=== PATIENT | male | born 1960 | race Caucasian/White ===

== ENCOUNTER 2017-08-08 21:30 | Emergency (ER) | payer BC ==
[2017-08-08 21:35] VITALS: TEMP 99.1
[2017-08-08] MEDS ORDERED: NS 1,000 ML IV ONE (22:11)
[2017-08-08] MEDS ORDERED: IBUPROFEN 600 MG TAB PO ONE (22:12)
[2017-08-08 22:37] LABS: PLATELET COUNT 214 10^3/uL (150-400)
[2017-08-08 23:30] VITALS: BP 122/66; PULSE 110; O2SAT 94
[2017-08-08 23:32] VITALS: RESP 16
--- NOTE | 2017-08-08 23:37 | EDPHY ---
H & P Stated Complaint: chills after dental work today with nausea - Personal History Current Tetanus/Diphtheria Vaccine: Unsure Current Tetanus Diphtheria and Acellular Pertussis (TDAP): Unsure Tetanus Vaccine Date: >10years - Medical/Surgical History Hx Asthma: No Hx Chronic Respiratory Disease: No Hx Diabetes: Yes Hx Cardiac Disease: Yes Hx Renal Disease: No Hx Cirrhosis: No Hx Alcoholism: No Hx HIV/AIDS: No Hx Splenectomy or Spleen Trauma: No Other PMH: hypertension, DM type 2, and hyperlipemia. - Social History Smoking Status: Former smoker Time Seen by Provider: 08/08/17 22:05 HPI/ROS: Chief complaint: Chills History of present illness: This is a 56-year-old male who presents to the emergency department for evaluation of chills. Patient states he had periodontal work done this afternoon. Shortly thereafter he developed chills. He has had associated body aches. Does state his mouth hurts from the periodontal work. He denies other associated signs or symptoms including no reported fever, no respiratory symptoms, no urinary symptoms. He has never had similar. Review of systems: A 10 point review of systems was obtained and other than described above was negative (Amrik Phelps) - Physical Exam Exam: General Appearance: Alert, no distress. Eyes: Pupils equal and round no pallor or injection. ENT, Mouth: Mucous membranes moist. Respiratory: There are no retractions, lungs are clear to auscultation. Cardiovascular: Regular rate and rhythm. Gastrointestinal: Abdomen is soft and non tender, no masses, bowel sounds normal. Neurological: Alert and oriented x4. Strength and sensation intact and symmetrical. No meningismus. Skin: Warm and dry, no rashes. Musculoskeletal: Neck is supple non tender. Extremities are symmetrical, full range of motion. Psychiatric: Patient is oriented X 3, there is no agitation. (Amrik Phelps) Constitutional: Initial Vital Signs Temperature (C) 37.3 C 08/08/17 21:32 Heart Rate 111 H 08/08/17 21:32 Respiratory Rate 18 08/08/17 21:32 Blood Pressure 138/87 H 08/08/17 21:32 O2 Sat (%) 92 08/08/17 21:32 O2 Delivery Mode Room Air Allergies/Adverse Reactions: No Known Allergies Allergy (Verified 08/08/17 21:35) Home Medications: Medication Instructions Recorded Aspirin [Aspirin 81mg (OTC)] 81 mg PO DAILY 11/30/13 Atorvastatin Calcium [Lipitor 40 40 mg PO DAILY 11/30/13 mg (RX)] Lisinopril [Zestril] 2.5 mg PO DAILY 11/30/13 Multivitamins [Tab-A-Yamile] 1 each PO DAILY 11/30/13 buPROPion XL [Wellbutrin Xl] 300 mg PO DAILY 11/30/13 metFORMIN HCL [Metformin HCl ER] 1,000 mg PO DAILY 11/30/13 Clopirel 08/08/17 Vyrdon 08/08/17 Medical Decision Making ED Course/Re-evaluation: Patient is discussed with my secondary supervising physician Dr. Malinda Astudillo. Patient presents to the emergency department for chills and body aches. He is nontoxic. He is tachycardic. CBC and chemistry unremarkable. Influenza negative. In discussing with patient he states 5 years ago he had a heart attack and had an atypical presentation although it felt nothing like his current symptoms. Nevertheless EKG and troponin obtained and negative. Certainly I think this could be a viral syndrome. But because of recent dental work I am concerned for potential bacteremia. He is symptomatically treated and states he is feeling much better. He is repeatedly asking to be discharged. Blood cultures obtained and sent. Home care is discussed. Return precautions are given. Patient voiced understanding and agreement with plan. ( Amrik Phelps) PHYSICIAN DOCUMENTATION: The patient was evaluated and managed by the Physician Forging Roll Operator. My co- signature indicates that I have reviewed this chart and I agree with the findings and plan of care as documented. I am the secondary supervising physician. (Malinda Astudillo) Differential Diagnosis: Included but not limited to viral syndromes including influenza, bacteremia from dental work, post anesthesia from dental or (Amrik Phelps) - Data Points Laboratory Results: Laboratory Results 08/08/17 22:25 08/08/17 22:25 Medications Given: Discontinued Medications Sodium Chloride (Ns) 1,000 mls @ 0 mls/hr IV EDNOW ONE; Wide Open PRN Reason: Protocol Stop: 08/08/17 22:12 Last Admin: 08/08/17 22:29 Dose: 1,000 mls Ibuprofen (Motrin) 600 mg PO EDNOW ONE Stop: 08/08/17 22:13 Last Admin: 08/08/17 22:29 Dose: 600 mg Departure - Departure Disposition: Home, Routine, Self-Care Clinical Impression: Shivering Condition: Good Instructions: Toothache (ED) Additional Instructions: Follow-up with your primary care doctor this week for recheck Please contact your dentist tomorrow and discuss symptoms with him If symptoms worsen or new symptoms develop return to the emergency room for recheck Referrals: India Braun MD [Primary Care Provider] - As per Instructions
--- NOTE | 2017-08-08 23:52 | CPEKG ---
Heart Rate: 103 RR Interval: 583 P-R Interval: 148 QRSD Interval: 86 QT Interval: 348 QTC Interval: 456 P Miller: 62 QRS Miller: 82 T Wave Miller: 7 EKG Severity - BORDERLINE ECG - EKG Impression: SINUS TACHYCARDIA EKG Impression: LOW VOLTAGE WITH RIGHT AXIS DEVIATION Electronically Signed By: Malinda Astudillo 09-Aug-2017 06:04:15
== END 2017-08-09 00:37 | disposition home or self-care (01) ==
DX: R25.1 Tremor, unspecified (principal); E86.9 Volume depletion, unspecified; I10 Essential (primary) hypertension; E11.9 Type 2 diabetes mellitus without complications; Z79.82 Long term (current) use of aspirin; Z87.891 Personal history of nicotine dependence; Z79.84 Long term (current) use of oral hypoglycemic drugs

== ENCOUNTER → 2018-03-03 | Outpatient (CLI) | payer BC ==
[~2018-03-03] MED LIST: DEPO METHYLPREDNISOLONE 40 MG/ML SDV ONE; IOPAMIDOL (ISOVUE 370) 100 ML BTL IV ONE; LIDOCAINE 1% 300 MG/30 ML SDV ONE; ROPIVACAINE HCL 150 MG/30 ML INJ ONE
== END ==
LOC: FIMAGING 10:24
PROVIDERS: ATTEND Orthopaedic Surgery
PROC: 3E0U33Z Introduction of Anti-inflammatory into Joints, Percutaneous Approach (ICD-10-PCS; principal; 2018-03-03)
DX: M16.12 Unilateral primary osteoarthritis, left hip (principal)
CPT/HCPCS: J1030; J2795; Q9967

== ENCOUNTER → 2018-12-15 | Outpatient (CLI) | payer BC | LOC: FIMAGING 10:08 ==